=== PATIENT | female | born 2005 | race Caucasian/White ===

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

== ENCOUNTER 2025-02-10 13:46 | Emergency (ER) | payer SELFPAY ==
--- OUTSIDE RECORDS SUMMARY | 2010-02-28 07:30 | XMS_ITS | Continuity of Care Document ---
Author Organization [facility] Address [address] [facility] [address] [place] [address] Phone Care Team Providers Care Section Leader And Machine Setter Name Role Phone Jackson OD, Marques Unavailable Unavailable Procedures Procedure Date Eye Exam, New Patient Refraction Advance Directives Directive Yes / No Effective Date File Name No Information Encounters Encounter Description Practice Location Reason(s) For Visit Diagnoses Date Provider Providers Copied on Encounter [facility], [address], [place], [place], [id number], [place] tel:[phone] SEC [facility] No Information [phone] Jackson OD Marques. [address] , [address], [place], [address], [place]. tel:[phone] Family History Family Member Type Diagnosis Age At Onset No Information Payers Payer name Insurance type Covered democrat ID Authorparisa tipeterson(s) Medicaid [facility] [id number] Social History Type Description Quantity Date Captured Comments Sex Female Smoking Status No Information Chief Complaint And Reason For Visit No Information Reason For Referral Reason For Referral No Information History Of Present Illness Encounter Date Complaint History Of Prese nt Illness No Information Functional Status Date Functional Assessmen t No Information Instructions Date Instruction Additional Infor mation No Information Assessments Type Assessment Date No Information Patient Care Teams Name Effective Dates (start - stop) Status Members No Information
--- OUTSIDE RECORDS SUMMARY | 2010-02-28 07:30 | XMS_ITS | Continuity of Care Document ---
Author Organization [facility] Address [address] [facility] [address] [place] [address] Phone Care Team Providers Care Shirt Bander Name Role Phone Jackson OD, Marques Unavailable Unavailable Procedures Procedure Date Eye Exam, New Patient Refraction Advance Directives Directive Yes / No Effective Date File Name No Information Encounters Encounter Description Practice Location Reason(s) For Visit Diagnoses Date Provider Providers Copied on Encounter [facility], [address], [place], [place], [id number], [place] tel:[phone] SEC [facility] No Information [phone] Jackson OD Marques. [address] , [address], [place], [address], [place]. tel:[phone] Family History Family Member Type Diagnosis Age At Onset No Information Payers Payer name Insurance type Covered republican ID Authoraprisa tipeterson(s) Medicaid [facility] [id number] Social History Type Description Quantity Date Captured [...]
--- OUTSIDE RECORDS SUMMARY | 2025-02-10 13:49 | XMS_ITS | Clinical Summary ---
Author Organization [facility] Address [facility] [place] [address] Care Team Providers Care Systems Management Consultant Name Role Phone SweetiejessieBroderickMalaklaus Yadav NP Primary Care Provider + [phone] Allergies No known active allergies Medications No known medications Active Problems Estimated Date of Delivery Comme nts Yes 02/23/2024 No known active problems Family History Relation Status Comments Father Alive Mother Alive Social History Tobacco Use Types Packs/Day Years Used Date Smoking Tobacco: Never Smokeless Tobacco: Never Tobacco Cessation:Counseling Given: Not Answered Alcohol Use Standard Drinks/Week Comments No 0 (1 standard drink = 0.6 oz pur e alcohol) Estimated Date of Delivery Comme nts Yes 02/23/2024 Sex and Gender Information Value Date Recorded Sex Assigned at Not on file Legal Sex Female 7:24 PM CDT Gender Identity Not on file Sexual Orientation Not on file Last Filed Vital Signs Vital Sign Reading Time Taken Comments Blood Pressure 115/53 07/21/2023 8:30 PM CONTROL ELECTRICIAN Pulse 92 07/21/2023 8:30 PM CONTROL ELECTRICIAN Temperature 36.6 C (97.8 F) 07/21/2023 6:08 PM CONTROL ELECTRICIAN Respiratory Rate 16 07/21/2023 6:08 PM CONTROL ELECTRICIAN Oxygen Saturation 99% 07/21/2023 8:30 PM CONTROL ELECTRICIAN Inhaled Oxygen Concentration - - Weight 49 kg (108 lb) 07/21/2023 6:08 PM CONTROL ELECTRICIAN Height 154.9 cm (5' 1) 07/21/2023 6:08 PM CONTROL ELECTRICIAN Body Mass Index 20.41 07/21/2023 6:08 PM CONTROL ELECTRICIAN Plan of Treatment Health Maintenance Due Date Last Done Comments Annual Physical 11/22/2007 Chlamydia Screening Females ages 16-24 2020 Hepatitis C 2022 COVID-19 Vaccine ( season) 2025 01/27/2021, 10/03/2020 DTaP, Tdap and Td Vaccines (7 - Td or Tdap) 12/29/2025 12/30/2015, 11/28/2009, 10/01/2006, Additional history exists RSV Immunization or 60+ Years (1 - 1-dose 75+ series) 11/22/2079 Hepatitis B Vaccines Completed 06/02/2005, 03/31/2005, 01/27/2005, Additional history exists Pneumococcal Vaccine: Pediatrics (0 to 5 Years) and At-Risk Patients (6 to 49 Years) Aged Out 02/22/2006, 06/02/2005, 03/31/2005, Additional history exists No longer eligible based on patient's age to complete this topic HPV Vaccines Completed 04/01/2017, 12/30/2015 Meningococcal Vaccine Completed 03/25/2021, 016 Meningococcal B Vaccine Completed 07/21/2022, 03/25 RSV Immunizations Under 20 Months Aged Out No longer eligible based on patient's age to complete this topic Insurance [employer] Care Teams Systems Management Consultant Relationship Specialty Start Date End Date Mala Tovar NP [address] [place] [phone] PCP - General NURSE PRACTITIONER 07/21/23
--- OUTSIDE RECORDS SUMMARY | 2025-02-10 13:49 | XMS_ITS | Clinical Summary ---
Author Organization [facility] Address [address] [place] [address] Care Team Providers Care Hand Driller Name Role Phone Shameka Saavedra MD Unavailable [phone] Unknown, Notinfile Primary Care Provider Unavail able Allergies No known active allergies Medications vit [id number]-[id number]-qpeji-d epperson 27mg iron- 800 mcg-250 mg capsule Take by mouth Active ferrous sulfate 325 mg (65 mg of elemental iron) tabletIndicatio ns:Iron Deficiency Anemia Take 1 tablet (325 mg total) by mouth 2 (two) times a day Take 1 tablet every other day with food or orange juice if this is not upsetting her stomach take it daily and if you can tolerate that then you may take it twice per day for a total of 60 tablets 60 tablet 1 Active Active Problems Problem Noted Date Diagnosed Date Third trimester 02/20/2024 (spontaneous vaginal delivery) 02/20/2024 Shoulder dystocia during labor and delivery 10/2023 Immunizations Immunization Administration Dates Next Due DTaP 10/01/2006 DTaP / Hep B / IPV 06/02/2005,03/31/2005, 005 DTaP / IPV 11/28/2009 HPV9 04/01/2017,12/30/2015 Hep A, Ped Unspecified 10/01/2006 Hep A, Pediatric 11/28/2009 Hep B, Adolescent or Pediatric 2004 HiB 10/01/2006, 6,03/31/2005,01/27 Influenza, Quadrivalent, Spl it, Preservative Free, Intramuscular 07/21/2022,03/25/2021,03/18/2020 MMR 11/28/2009,02/22/2006 Meningococcal B, OMV (Bexsero) 07/21/2022,2020 Meningococcal Conjugate (Menveo) 03/25/2021,12/15 Pneumococcal Conjugate 7-Valent 02/23/20 06,06/02/2005,03/31/2005,01/27 Tdap 02/22/2024,12/30/2015 Varicella 11/28/2009,02/22/2006 Social History Tobacco Use Types Packs/Day Years Used Date Smoking Tobacco: Never Tobacco Cessation:Counseling Given: Not Answered Bunola Depression Scale Answer Date Recorded B[place] Depression Scale Total 0 02/22/2024 The thought of harming myself has occurred to me . Never 02/22/2024 Personal Safety Answer Date Recorded Have you ever been in or are you currently in a harmful physical or emotional relationship or is someone making you feel afraid or unsafe? Denies 01/26/2024 Comments No Sex and Gender Information Value Date Recorded Sex Assigned at Not on file Legal Sex Female 9:02 PM QUALITY COORDINATOR Gender Identity Female 01/26/2024 10:38 AM CDT Sexual Orientation Not on file Obstetrics History Para Term AB IAB SAB Ectopic Multiple Livin g Live Births 1 1 1 0 1 1 Date Outcome GA Total Labor Labor/2nd/3rd Weight Sex Type Anes PTL Namita A1 A5 Name Clin 2023 Term 40w 4d 4h 32m 3h 47m/0h 40m/0h 05m 3.13 kg (6 lb 14.4 oz) M Vagina l Epidur al N Livin g 1 6 Kylia n Shameka Esteban ams, MD Complications:Shoulder Dysto katie Delivery Location:[facility] Main C ampus ([facility]) Last Filed Vital Signs Vital Sign Reading Time Taken Comments Blood Pressure 122/79 02/22/2024 1:00 PM CDT Pulse 78 02/22/2024 1:00 PM CDT Temperature 36.8 C (98.2 F) 02/22/2024 1:00 PM CDT Respiratory Rate 18 02/22/2024 1:00 PM CDT Oxygen Saturation 99% 02/21/2024 9:20 PM CDT Inhaled Oxygen Concentration - - Weight 77.6 kg (171 lb) 02/19/2024 11:34 PM CDT Height 157.5 cm (5' 2) 02/19/2024 11:34 PM CDT Body Mass Index 31.28 02/19/2024 11:34 PM CDT Plan of Treatment Health Maintenance Due Date Last Done Comments Chlamydia and Gonorrhea (GC/ CT) Screening 2004 Hepatitis C Screening 2004 Regular Well Visit/Exam 18-64 2022 Covid-19 Vaccine (2024-06 6 season) 2025 01/27/2021, 10/03/2020 Influenza Vaccine (#1) 2025 , 03/25/2021, 03/18/2020 Depression Screening 02/21/2025 02/22/2024 DTaP/Tdap/Td Vaccine (8 - Td or Tdap) 02/21/2034 02/22/2024, 12/30/2015, 11/28/2009, Additional history exists Hepatitis B Screening Completed 06/02/2005 , 03/31/2005, 01/27/2005, Additional history exists Pneumococcal vaccine <65 Completed 006, 06/02/2005, 03/31/2005, Additional history exists Varicella Vaccines Completed 11/28/2009, 02/22/2006 HPV Vaccines Completed 04/01/2017, 12/30/2015 Meningococcal Vaccine Completed 03/25/2021, 016 Meningococcal B Vaccine Completed 07/21/2022, 03/25 Insurance [facility] Advance Directives For more information, please contact: [phone] * Full Code (Latest Code Status on File) Date Activated Date Inactivated Comments 02/20/2024 12:05 AM 02/22/2024 5:55 PM Full CPR in case of cardiopulmonary arrest Care Teams Hand Driller Relationship Specialty Start Date End Date Unknown, Notinfile PCP - General 07/26/24 Shameka Saavedra MD Consulting Physician Obstetrics and Gynecology 02/22/24
[2025-02-10 13:50] VITALS: BP 100/52; PULSE 84; RESP 18; TEMP 36.9; O2SAT 100
[2025-02-10 14:11] LABS: Add Urine Microscopic? YES; Appearance Urine Turbid (Clear); Glucose Urine UA Negative (Negative); Leukocyte Esterase Ur 3+ LEU/UL (Negative); Nitrate Urine Negative (Negative); Non Pathogenic Casts 0-2; Specific Grav Ur 1.023 (1.001-1.035)
[2025-02-10 14:12] LABS: BEDSIDEPREGUCG Negative (Negative)
--- OUTSIDE RECORDS SUMMARY | 2025-02-10 14:24 | XMS_ITS | Clinical Summary ---
Author Organization [facility] Address [facility] [place] [address] Care Team Providers Care Highway Safety Engineer Name Role Phone SweetiejessieBroderickMalaklaus Yadav NP Primary Care Provider + [phone] Allergies No known active allergies Medications No [...] Comments Blood Pressure 115/53 07/21/2023 8:30 PM BOTTOM CAGER Pulse 92 07/21/2023 8:30 PM BOTTOM CAGER Temperature 36.6 C (97.8 F) 07/21/2023 6:08 PM BOTTOM CAGER Respiratory Rate 16 07/21/2023 6:08 PM BOTTOM CAGER Oxygen Saturation 99% 07/21/2023 8:30 PM BOTTOM CAGER Inhaled Oxygen Concentration - - Weight 49 kg (108 lb) 07/21/2023 6:08 PM BOTTOM CAGER Height 154.9 cm (5' 1) 07/21/2023 6:08 PM BOTTOM CAGER Body Mass Index 20.41 07/21/2023 6:08 PM BOTTOM CAGER Plan of Treatment Health Maintenance Due Date [...] patient's age to complete this topic Insurance [employer] Care Teams Highway Safety Engineer Relationship Specialty Start Date End Date Mala Tovar NP [address] [place] [id number] PCP - General NURSE PRACTITIONER 07/21/23
--- OUTSIDE RECORDS SUMMARY | 2025-02-10 14:24 | XMS_ITS | Clinical Summary ---
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 Gender Identity Female 01/26/2024 10:38 AM CDT [...] Esteban ams, MD Complications:Shoulder Dysto katie Delivery Location:[facility] ([facility]) Last Filed Vital Signs Vital Sign [...] Meningococcal B Vaccine Completed 07/21/2022, 03/25 Insurance [facility] Advance Directives For more information, please contact: [phone] * Full Code (Latest Code Status on File) Date Activated Date Inactivated Comments 02/20/2024 12:05 AM 02/22/2024 5:55 PM Full CPR in case of cardiopulmonary arrest Care Teams Test Facility Engineer Relationship Specialty Start Date End Date Unknown, Notinfile PCP - General 07/26/24 Shameka Saavedra MD Consulting Physician Obstetrics and Gynecology 02/22/24
--- NOTE | 2025-02-10 14:34 | ED_ITS ---
HPI - Female Genitourinary General Chief complaint: Urogenital-Female Stated complaint: BLOOD IN URINE AND CRAMPING Time Seen by Provider: 02/10/25 14:07 History of Present Illness HPI Narrative: Patient is a 19-year-old female who presents to the ER with hematuria. She reports she 1st noticed symptoms this morning. Patient endorses slight abdominal pain. Her last menstrual period was 2 weeks ago. She reports she has a history of UTIs and was on antibiotics approximately 2 months ago. Patient reports they put her on Keflex because she was , she is no longer now. She denies any recent fevers, acute lower back pain, or abnormal vaginal discharge. Patient reports her last menstrual period started approximately 2 weeks ago. She denies any other medical history relevant to this ER visit. Related Data Allergies Allergy/AdvReac Type Severity Reaction Status Date / Time No Known Allergies Allergy Verified 02/10/25 14:07 Review of Systems Review of Systems: All systems reviewed & are unremarkable except as noted in HPI and below PMFSH Past Medical History Medical History No pertinent past medical history Surgical History Surgical History No pertinent past surgical history Social History Social History Smoking status: Never smoker Exam Narrative: GENERAL: Well appearing, well-nourished, non-toxic, in no acute distress. HEAD: Normocephalic, atraumatic. NECK: Supple. No adenopathy, no masses. RESPIRATORY: Airway patent, respirations nonlabored. Clear to auscultation bilaterally, no rales, rhonchi, wheezing. CARDIOVASCULAR: Regular rate and rhythm without murmurs, rubs, or gallops. Peripheral pulses 2+ and equal bilaterally. Negative CVA tenderness. ABDOMINAL: Soft, mildly tender, nondistended, no hepatosplenomegaly. Normoactive BS. MUSCULOSKELETAL: Moves all extremities. Strength/ROM intact without gross deformities. SKIN: Warm, dry, normal color. No rashes. NEURO: A&O X3. Speech clear. Cranial nerves II-XII intact. No ataxic movements. PSYCHIATRIC: Appropriate mood and affect. Normal interaction. Course Vital Signs Vital signs: Vital Signs Temperature 36.9 C 02/10/25 13:50 Pulse Rate 84 02/10/25 13:50 Respiratory Rate 18 02/10/25 13:50 Blood Pressure 100/52 L 02/10/25 13:50 Pulse Oximetry 100 02/10/25 13:50 Temperature 36.9 C 02/10/25 13:50 Pulse Rate 84 02/10/25 13:50 Respiratory Rate 18 02/10/25 13:50 Blood Pressure 100/52 L 02/10/25 13:50 Pulse Oximetry 100 02/10/25 13:50 MDM - Female Genitourinary MDM Narrative Medical decision making narrative: Patient is a 19-year-old female who presents to the ER with hematuria. She reports she 1st noticed symptoms this morning. Patient endorses slight abdominal pain. Her last menstrual period was 2 weeks ago. She reports she has a history of UTIs and was on antibiotics approximately 2 months ago. Patient reports they put her on Keflex because she was , she is no longer now. She denies any recent fevers, acute lower back pain, or abnormal vaginal discharge. Patient reports her last menstrual period started approximately 2 weeks ago. She denies any other medical history relevant to this ER visit. Labs Ordered: UA Imaging Ordered: None necessary Medications Ordered: Bactrim p.o. Results: Patient's urinalysis indicates she has UTI. Diagnosis: Urinary tract infection Patient Education/Shared MDM: Results of lab work shared with patient. She will be given her 1st dose of oral antibiotics here in the ER. Patient strongly advised to maintain hydration status upon discharge and follow-up with her PCP in 2-3 days. She will be discharged home with a prescription for Bactrim. Strict return precautions provided. Patient verbalized understanding and is in agreement with plan. Vital signs stable at time of discharge. All questions answered. Differential Diagnosis Differential diagnosis: Likely urinary tract infection, bacterial vaginosis, trichomoniasis and dysmenorrhea Lab Data Attestation: I reviewed the patient's lab results. Labs: Lab Results 02/10/25 02/10/25 Range/Units 14:03 14:10 Urine Color Yellow (Yellow) Urine Appearance Turbid H (Clear) Urine pH 7.5 (5.0-9.0) Ur Specific [place] 1.023 (1.001-1.035) Urine Protein 2+ H (Negative) mg/dL Urine Glucose (UA) Negative (Negative) mg/dL Urine Ketones Trace H (Negative) mg/dL Ur Blood (Man) 3+ H (Negative) Urine Nitrate Negative (Negative) Urine Bilirubin Negative (Negative) Urine Urobilinogen 1.0 (<2.0) mg/dL Leukocyte Esterase Rfl 3+ H (Negative) CATHERINE/UL Urine RBC >100 H (0-2) /hpf Urine WBC >100 H (0-3) /hpf Ur Squamous Epith Cells Few (Few) /hpf Urine Bacteria None seen /hpf Urine Casts 0-2 POC Urine HCG, Qual Negative (Negative) Discharge Plan Discharge Clinical Impression: Urinary tract infection Patient Disposition: Home Condition: Stable Instructions: Antibiotic Form, Urinary Tract Infection in Women (ED) Additional Instructions: Please return to the ER with any worsening symptoms. Follow-up with primary care provider in 2-3 days to ensure your he. Take all medications as prescribed, including regularly scheduled medications. Complete your full dose of antibiotics. Please remember to drink lots of water. Patient Language: Somali Prescriptions: New sulfamethoxazole-trimethoprim [Bactrim DS] 800-160 mg tablet 1 tablet PO Q12H 5 Days Qty: 10 0RF phenazopyridine [Pyridium] 200 mg tablet 200 mg PO TID Qty: 6 0RF Follow-up/Referrals: PHYSICIAN,LENS GRINDING MACHINE OPERATOR [Primary Care Provider, Internal Medicine] Stand Alone Forms: Work/School Release IP Time of Disposition: 14:40
[2025-02-10] MEDS: SULFAMETHOXAZOLE/TRIMETHOPRIM 800/160 MG DS TABLET 1 TAB PO (15:27)
[2025-02-10 15:31] VITALS: RESP 16
== END 2025-02-10 15:34 | disposition home or self-care (01) ==
PROVIDERS: Emergency Medicine; Emergency Provider Registered Nurse
DX: N39.0 Urinary tract infection, site not specified (principal)
CPT/HCPCS: 81001; 81025; 87086; 87186; 99283; A9270